=== PATIENT | male | born 1955 | race Caucasian/White ===

== ENCOUNTER → 2019-05-11 | Outpatient (REF) | payer BC | LOC: M SFHCPLAZ 18:19 | PROVIDERS: ATTEND Dermatology | DX: D49.2 Neoplasm of unspecified behavior of bone, soft tissue, and skin (principal) ==

== ENCOUNTER → 2019-07-19 | Outpatient (REF) | payer BC | LOC: M SFHCPLAZ 17:23 | PROVIDERS: ATTEND Dermatology | DX: C44.329 Squamous cell carcinoma of skin of other parts of face (principal) ==

== ENCOUNTER → 2019-09-05 | Outpatient (REF) | payer BC | LOC: M LAB REF 18:46 | PROVIDERS: ATTEND Dermatology | DX: C44.311 Basal cell carcinoma of skin of nose (principal) ==

== ENCOUNTER → 2019-12-19 | Outpatient (REF) | payer BC | LOC: M LAB REF 09:59 | PROVIDERS: ATTEND Dermatology | DX: C44.311 Basal cell carcinoma of skin of nose (principal) ==

== ENCOUNTER → 2024-02-18 | Outpatient (CLI) | payer MEDICARE | LOC: M PLAIMG 09:09 | PROVIDERS: ATTEND Internal Medicine Pulmonary Disease | DX: R91.8 Other nonspecific abnormal finding of lung field (principal) ==